=== PATIENT | male | born 1990 | race Caucasian/White ===

== ENCOUNTER 2017-12-12 11:29 | Emergency (ER) | payer OTHER ==
[~2017-12-12] VITALS: Ht 190.5 cm; Wt 78.0 kg
[~2017-12-12 11:29] MED LIST: BACTRIM DS TAB1 EACH PO
[2017-12-12] MEDS ORDERED: PREDNISONE20 MG PO (13:02)
== END 2017-12-12 13:14 | disposition home or self-care (01) ==
LOC: ED 11:29
DX: L51.9 Erythema multiforme, unspecified (principal); F17.200 Nicotine dependence, unspecified, uncomplicated
CPT/HCPCS: 99282; J7512; Q0163

== ENCOUNTER 2018-03-17 20:46 | Emergency (ER) | payer OTHER ==
[~2018-03-17] VITALS: Ht 190.5 cm; Wt 78.0 kg
[~2018-03-17 20:46] MED LIST changes: +PREDNISONE20 MG PO
[2018-03-17] MEDS ORDERED: ULTRAM50 MG PO (20:58)
[2018-03-17] MEDS ORDERED: PENICILLIN V P500 MG PO (20:58)
[2018-03-17] MEDS ORDERED: CYCLOBENZAPRINE10 MG PO (21:27)
== END 2018-03-17 21:39 | disposition home or self-care (01) ==
LOC: ED 20:46
DX: M54.6 Pain in thoracic spine (principal); F17.200 Nicotine dependence, unspecified, uncomplicated; Z79.899 Other long term (current) drug therapy
CPT/HCPCS: 71046; 99283

== ENCOUNTER 2019-01-26 00:56 | Emergency (ER) | payer OTHER ==
[~2019-01-26] VITALS: Ht 190.5 cm; Wt 72.6 kg
[~2019-01-26 00:56] MED LIST changes: +CYCLOBENZAPRINE10 MG PO; +PENICILLIN V P500 MG PO; +ULTRAM50 MG PO
[2019-01-26] MEDS ORDERED: CYCLOBENZAPRINE10 MG PO (01:50)
[2019-01-26] MEDS ORDERED: DICLOFENAC SODI75 MG PO (01:50)
== END 2019-01-26 02:10 | disposition home or self-care (01) ==
LOC: ED 00:56
DX: S29.012A Strain of muscle and tendon of back wall of thorax, initial encounter (principal); X58.XXXA Exposure to other specified factors, initial encounter; F17.200 Nicotine dependence, unspecified, uncomplicated
CPT/HCPCS: 71046; 99283-25

== ENCOUNTER 2020-05-10 18:16 | Emergency (ER) | payer OTHER ==
[~2020-05-10] VITALS: Ht 190.5 cm; Wt 79.8 kg
[~2020-05-10 18:16] MED LIST changes: +DICLOFENAC SODI75 MG PO
--- OUTSIDE RECORDS SUMMARY | 2020-05-10 18:20 | XMS ---
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 Guidelines Source: [facility] [place] Guidelines Date: 02/03/2019 Care Coordination: Enrolled in mental health services with [facility].\T\nbsp; Please contact [facility] with mental health concerns.\T\nbsp; Qian/Tripp Janbanner: \T\nbsp; Karen: [phone]. E.D. VISIT COUNT ([address] MO[address] [facility] TOTAL 1 NOTE: Visits indicate total known visits. ED/UCC VISIT TRACKING (12 MO.) 05/10/2020 18:18 [facility] [place] TYPE: Emergency COMPLAINT: - RECTAL BLEEDING INPATIENT VISIT TRACKING (12 MO.) No inpatient visits to display in this time frame [email or web address]
== END 2020-05-10 20:35 | disposition home or self-care (01) ==
LOC: ED 18:16
DX: K64.8 Other hemorrhoids (principal); F17.200 Nicotine dependence, unspecified, uncomplicated
CPT/HCPCS: 99284

== ENCOUNTER 2020-08-09 09:15 | Day surgery (SDC) | payer OTHER ==
--- NOTE | 2020-08-09 11:31 | NUR ---
08/09/20 1131 Georgia Freed 1120 PT TO PACU AWAKE AND ALERT DENIES PAIN OR NAUSEA.
--- NOTE | 2020-08-09 16:21 | OR ---
[facility] [address], [place] [address] Signed DATE OF OPERATION: 08/09/2020 SURGEON: Evangelina Aguilar MD PREOPERATIVE DIAGNOSES: 1. Moderate external hemorrhoids x3. 2. Rectal bleeding. 3. Pruritus Ani. POSTOPERATIVE DIAGNOSES: 1. Moderate external hemorrhoids x3. 2. Minimal internal hemorrhoid columns x1. PROCEDURES: Colonoscopy without biopsy. ESTIMATED BLOOD LOSS: None. INDICATIONS: Ester is a 29-year-old gentleman asked to see me for his hemorrhoids. He has noticed them about five years ago. He said they frequently swell and cause rectal bleeding and mucousy discharge. That irritates the skin around his anus. He knows that taking a shower really helps the irritation around the anal skin. He is learning to add fiber to his diet. He has gotten completely rid of the toilet paper and uses moist biodegradable water-based wipes. He had an episode recently where the hemorrhoids were quite swollen. He had been to his primary care provider. They actually sent in the emergency room with concerns of possible rectal prolapse. After being evaluated in the emergency room for the external hemorrhoids, he was discharged home. They asked to see me in followup as a general surgeon. In the office, I had met with Ester with respect to the above. He declined digital rectal exam and anoscopy. However, we could easily see his external hemorrhoids. The most concerning hemorrhoid is at the 3 o'clock position that being the right lateral position. It is beefy and moist and I am sure that is the one causes the bleeding and the mucousy discharge. He also has external hemorrhoids at the 5 and 9 o'clock positions. Of course, they were smaller and less irritated. There is some moisture at that time on his skin. Overall, he still has healthy skin around the anus. There is mild irritation and I am sure he has some level of pruritus ani. We had a long discussion regarding the medical and surgical treatment of hemorrhoids. I gave him our brochures on hemorrhoids as well as pruritus ani. He has already taken significant measures to help himself. He said he is not particularly interested in surgery if he Electronically Signed By: EVANGELINA AGUILAR MD 08/09/20 1621 PATIENT NAME: ESTER QURESHI OPERATIVE REPORT DATE OF : 89 REPORT #: [id number] PHYSICIAN: EVANGELINA AGUILAR MD PCP: SANTOS PLUMMER NP REPORT IS CONFIDENTIAL AND NOT TO BE RELEASED WITHOUT AUTHORIZATION [facility] [address] [place] [id number] Signed can develop medical conservative plan that works for him. However, I explained to Ester he is probably best to have a colonoscopy to make sure nothing else was bleeding besides the hemorrhoids. I gave him a pamphlet on colonoscopy and we had discussed the nature of that test. He understood there is risk including, but not limited to gas bloating, crampy abdominal pain, bleeding, perforation requiring surgery, and missed diagnosis. He also understands the need for IV conscious sedation. He had expressed understanding and wished to proceed. PROCEDURE NOTE: Ester was taken into our endoscopy suite and placed in the left lateral decubitus position. He was given 10 mg of Versed and 200 mcg of fentanyl to cover the case. He did relax for a little while, but given his young, he was a bit awake during the procedure, but seemed to tolerate quite well. Once again, we looked and we can see the large beefy hemorrhoids at the 3 o'clock position. He has excellent sphincter tone. No masses noted. The adult colonoscope had been introduced and advanced all around into the cecum under direct visualization of the camera. His prep was good. We could easily see the appendiceal orifice and the ileocecal valve. The scope was then slowly withdrawn. We found no pathology throughout the entire colon or rectum. Upon retroflexion of scope, he has just one internal hemorrhoid column. I imagined that is also at the 3 o'clock position. After this, the gas has been suctioned out and the colonoscope removed. Ester had tolerated procedure quite well. RECOMMENDATIONS: Ester was welcomed to follow up in my office as needed. He knows that if at some point he wants to have that hemorrhoid removed I am more than happy to help him in that regard. Otherwise, he is going to continue on his conservative regimen. Evangelina Aguilar MD [facility]/JANNETHL /[id number] cc: TIMI Collins MD Electronically Signed By: EVANGELINA AGUILAR MD 08/09/20 1621 PATIENT NAME: ESTER QURESHI OPERATIVE REPORT DATE OF : 89 REPORT #: [id number] PHYSICIAN: EVANGELINA AGUILAR MD PCP: SANTOS PLUMMER NP REPORT IS CONFIDENTIAL AND NOT TO BE RELEASED WITHOUT AUTHORIZATION [facility] [address] [place], [place] [address] Signed Copies: EVANGELINA AGUILAR MD ~ Electronically Signed By: EVANGELINA AGUILAR MD 08/09/20 1621 PATIENT NAME: ESTER QURESHI OPERATIVE REPORT DATE OF : [birth year] REPORT #: [id number] PHYSICIAN: EVANGELINA AGUILAR MD PCP: SANTOS PLUMMER NP REPORT IS CONFIDENTIAL AND NOT TO BE RELEASED WITHOUT AUTHORIZATION
== END 2020-08-09 12:08 | disposition home or self-care (01) ==
LOC: OPS 09:15 → DS 09:18 → OPS 10:30 → DS 10:30 → OPS 12:08
PROVIDERS: ATTEND Colon & Rectal Surgery
PROC: 0DJD8ZZ Inspection of Lower Intestinal Tract, Via Natural or Artificial Opening Endoscopic (ICD-10-PCS; principal; 2020-08-09 10:30)
DX: K64.4 Residual hemorrhoidal skin tags (principal); K64.8 Other hemorrhoids; F17.200 Nicotine dependence, unspecified, uncomplicated
CPT/HCPCS: 99153; G0500; J2250; J3010; J7121

== ENCOUNTER 2021-01-10 16:36 | Emergency (ER) | payer OTHER ==
[~2021-01-10] VITALS: Ht 190.5 cm; Wt 79.8 kg
[2021-01-10] MEDS ORDERED: PROCTOCREAM-HC30 GM TOP (18:17)
== END 2021-01-10 18:33 | disposition home or self-care (01) ==
LOC: ED 16:36
DX: K64.4 Residual hemorrhoidal skin tags (principal); F17.200 Nicotine dependence, unspecified, uncomplicated
CPT/HCPCS: 99282